=== PATIENT | female | born 1995 ===

== ENCOUNTER 2018-09-04 00:29 | Observation (INO) | payer BC ==
[2018-09-04 00:38] VITALS: BMI 26.6
[2018-09-04 01:12] LABS: HCG,QUALITATIVE URINE NEGATIVE (NEGATIVE)
[2018-09-04 01:13] LABS: SQUAMOUS EPITHIAL 1 /hpf (0-5)
[2018-09-04 01:16] LABS: URINE BILIRUBIN NEGATIVE (NEGATIVE); URINE CLARITY Clear (Clear); URINE COLOR YELLOW (YELLOW); URINE GLUCOSE (UA) NEGATIVE (Normal)
[2018-09-04 01:17] LABS: PH,URINE 7.5 (5.0-8.0); URINE BLOOD MODERATE (NEGATIVE); URINE LEUKOCYTE ESTERASE NEGATIVE Leu/uL (Negative); URINE PROTEIN NEGATIVE (NEGATIVE); URINE UROBILINOGEN 0.2 mg/dL (0.2-1.0)
[2018-09-04] MEDS ORDERED: Iohexol 240 (50 ml) PO ONE (01:49)
[2018-09-04] MEDS ORDERED: Sodium Chloride 0.9% 500 ML IV ONE (01:57)
[2018-09-04] MEDS ORDERED: Iodixanol 320 MG/ML 200 ML BOTTLE IV ONE (01:58)
[2018-09-04] MEDS ORDERED: Iohexol 240 (50 ml) ONE (02:10)
[2018-09-04] MEDS ORDERED: Sodium Chloride 0.9% 1,000 ML ONE (02:11)
[2018-09-04 02:16] LABS: BASO # 0.1 K/uL (0.0-0.2); BASO % 0.4 % (0.0-2.0); EOS # 0.2 K/uL (0.0-0.7); EOS % 1.6 % (0.0-4.0); HEMOGLOBIN 12.6 g/dL (11.0-16.0); LYMPH # 1.3 K/uL (1.0-4.3); LYMPH % 9.1 % (20.0-40.0); MEAN CELL VOLUME 91.7 fL (81.0-99.0); MEAN CORPUSCULAR HEMOGLOBIN 30.6 pg (27.0-31.0); MEAN CORPUSCULAR HGB CONC 33.4 g/dL (33.0-37.0); MEAN PLATELET VOLUME 8.8 fL (7.2-11.7); MONO # 1.2 K/uL (0.0-0.8); MONO % 7.9 % (0.0-10.0); NEUT # 11.8 K/uL (1.8-7.0); PLATELET COUNT 313 K/uL (130-400); RED CELL DISTRIBUTION WIDTH 13.6 % (11.5-14.5); WHITE BLOOD COUNT 14.6 K/uL (4.8-10.8)
[2018-09-04 02:24] LABS: BLOOD UREA NITROGEN 12 mg/dL (7-17); CALCIUM 9.3 mg/dl (8.6-10.4); GFR NON-AFRICAN AMERICAN > 60; LIPASE 22 U/L (23-300)
[2018-09-04 02:56] LABS: ALB/GLOB RATIO 1.5 (1.0-2.1); ALBUMIN 4.5 g/dL (3.5-5.0); ALT/SGPT 9 U/L (9-52); AST/SGOT 39 U/L (14-36)
[2018-09-04 02:58] LABS: EOSINOPHIL 1 % (0-4); LYMPHOCYTE 10 % (20-40); MONOCYTE 9 % (0-10); NEUTROPHIL 80 % (50-75); PLATELET ESTIMATE NORMAL (NORMAL); TOTAL CELLS COUNTED 100
[2018-09-04 03:20] VITALS: RESP 20
--- NOTE | 2018-09-04 04:02 | C.PDOC ---
History Of Present Illness 23 year old female presents to the ED c/o RLQ abdominal pain that started yesterday. Patient states her period just started but has not experienced pain like this before. Patient denies fever, chills, nausea, vomit, diarrhea, dysuria , hematuria, back pain, injury, fall, trauma. Time Seen by Provider: 09/04/18 00:54 Chief Complaint (Nursing): Abdominal Pain History Per: Patient History/Exam Limitations: no limitations Onset/Duration Of Symptoms: Days (1) Current Symptoms Are (Timing): Still Present Location Of Pain/Discomfort: RLQ Quality Of Discomfort: "Pain" Associated Symptoms: denies: Nausea, Vomiting, Diarrhea, Urinary Symptoms Recent travel outside of the [place]: No Additional History Per: Patient Abnormal Vaginal Bleeding: No Last Menstral Period: 09/03/18 Past Medical History Reviewed: Historical Data, Nursing Documentation, Vital Signs Vital Signs: Last Vital Signs Temp 98.2 F 09/04/18 02:40 Pulse 72 09/04/18 02:40 Resp 20 09/04/18 02:40 BP 118/74 09/04/18 02:40 Pulse Ox 99 09/04/18 02:40 - Medical History PMH: No Chronic Diseases Surgical History: No Surg Hx - [facility] Procedures CLOSURE SKIN & SUBCUTANEOUS NEC (03/21/04) SUTURE OF LIP LACERATION (03/21/04) Family History: States: Unknown Family Hx - Social History Hx Alcohol Use: Yes Hx Substance Use: No - Immunization History Hx Tetanus Toxoid Vaccination: No Hx Influenza Vaccination: No Hx Pneumococcal Vaccination: No Review Of Systems Constitutional: Negative for: Fever, Chills Respiratory: Negative for: Cough, Shortness of Breath Gastrointestinal: Positive for: Abdominal Pain. Negative for: Nausea, Vomiting, Diarrhea Genitourinary: Negative for: Dysuria, Hematuria, Vaginal Discharge Musculoskeletal: Negative for: Back Pain Neurological: Negative for: Weakness, Numbness Physical Exam - Physical Exam Appears: Non-toxic, No Acute Distress Skin: Normal Color, Warm, Dry Head: Atraumatic, Normacephalic Eye(s): bilateral: Normal Inspection Oral Mucosa: Moist Neck: Normal ROM, Supple Chest: Symmetrical Cardiovascular: Rhythm Regular Respiratory: Normal Breath Sounds, No Rales, No Rhonchi, No Wheezing Gastrointestinal/Abdominal: Soft, Tenderness (RLQ), No Guarding, No Rebound Back: No CVA Tenderness Pelvic: Vaginal Bleeding (minimal in vault), No Cervical Motion Tenderness, No Cervix Open, No Adnexal Tenderness (or fullness b/l) Extremity: Normal ROM, No Tenderness, No Swelling Neurological/Psych: Oriented x3, Normal Speech, Normal Cognition Gait: Steady ED Course And Treatment - Laboratory Results Result Diagrams: 09/04/18 02:09 09/04/18 02:09 Lab Results: Total Bilirubin 0.9 mg/dL (0.2-1.3) 09/04/18 02:09 AST 39 U/L (14-36) H 09/04/18 02:09 ALT 9 U/L (9-52) 09/04/18 02:09 Alkaline Phosphatase 67 U/L (38-126) 09/04/18 02:09 Total Protein 7.5 g/dL (6.3-8.3) 09/04/18 02:09 Albumin 4.5 g/dL (3.5-5.0) 09/04/18 02:09 Globulin 3.0 gm/dL (2.2-3.9) 09/04/18 02:09 Albumin/Globulin Ratio 1.5 (1.0-2.1) 09/04/18 02:09 Lipase 22 U/L (23-300) L 09/04/18 02:09 Urine Color Yellow (YELLOW) 09/04/18 01:07 Urine Clarity Clear (Clear) 09/04/18 01:07 Urine pH 7.5 (5.0-8.0) 09/04/18 01:07 Ur Specific [place] 1.015 (1.003-1.030) 09/04/18 01:07 Urine Protein Negative mg/dL (NEGATIVE) 09/04/18 01:07 Urine Glucose (UA) Negative mg/dL (Normal) 09/04/18 01:07 Urine Ketones Negative mg/dL (NEGATIVE) 09/04/18 01:07 Urine Blood Moderate (NEGATIVE) 09/04/18 01:07 Urine Nitrate Negative (NEGATIVE) 09/04/18 01:07 Urine Bilirubin Negative (NEGATIVE) 09/04/18 01:07 Urine Urobilinogen 0.2 mg/dL (0.2-1.0) 09/04/18 01:07 Ur Leukocyte Esterase Negative Hortencia/uL (Negative) 09/04/18 01:07 Urine WBC (Auto) 1 /hpf (0-5) 09/04/18 01:07 Urine RBC (Auto) 17 /hpf (0-3) H 09/04/18 01:07 Ur Squamous Epith Cells 1 /hpf (0-5) 09/04/18 01:07 Urine HCG, Qual Negative (NEGATIVE) 09/04/18 01:07 Urine HCG, Qual Negative (NEGATIVE) 09/04/18 01:07 O2 Sat by Pulse Oximetry: 99 (ON RA) Pulse Ox Interpretation: Normal - CT Scan/US Ct abd/pelvis Other Rad Studies (CT/US): Read By Radiologist, Radiology Report Reviewed CT/US Interpretation: CT SCAN OF THE ABDOMEN AND PELVIS WITH CONTRAST. CLINICAL HISTORY: Right lower quadrant pain. TECHNIQUE: Multiple axial and coronal CT images were obtained through the abdomen and pelvis after administration of intravenous and oral contrast material. COMMENTS: The appendix is enlarged measuring 1.5 cm in its largest transverse dimension. Diffuse thickening and enhancement of the wall of the appendix with prominent surrounding inflammatory fat stranding. The liver is of uniform attenuation without mass or defect. There is no intra or extrahepatic biliary ductal dilatation. The spleen is normal. The gallbladder is within normal limits. The pancreas is of normal contour and attenuation characteristics. There is no evidence of adrenal mass. Both kidneys demonstrate prompt and equal nephrograms. The kidneys are normal in size, shape and configuration. There is no evidence of renal or ureteral mass. No renal or ureteral calculi are identified. There is no hydroureter or hydronephrosis. There is no bowel wall thickening. No evidence for small or large bowel obstruction. There is no evidence of abdominal ascites or lymphadenopathy. There is no evidence of intrinsic or extrinsic bladder mass. There is no pelvic ascites or lymphadenopathy. Images of the lung bases show no evidence of pleural or parenchymal mass. There are no pleural effusions. The bony structures are free of lytic or blastic lesions. IMPRESSION: Uncomplicated acute appendicitis without perforation or abscess formation. Thank you for your kind referral of this patient. . Electronically signed on Sep 04, 2018 4:35:45 AM EST by: Yamel Potter M.D., Certified by ABR, MSK, Neuroradiology. Progress Note: Plan: - CT abd/pelvis. - Labs. - Morphine 2 mg IVP. - IV fluids. - UA. 04:50 - spoke with residential mortgage underwriter who will evaluate the patient for admission under Dr. Holcomb service. 05:27 - pages Lilo Hanna using his service. 05:55 - second call for Lilo Hanna was placed using his call service again. Labs and Abd/ pelvis CT d/w pt who who und erstand and agreed to plan . Zosyn IV initiated in ED. Disposition - Disposition Disposition: HOSPITALIZED Disposition Time: 05:25 Condition: STABLE - Clinical Impression Clinical Impression: Acute appendicitis - PA / BINDERY ASSISTANT / Resident Statement MD/DO has reviewed & agrees with the documentation as recorded. - Scribe Statement The provider has reviewed the documentation as recorded by the Scribe Wiliam Hurtado All medical record entries made by the Scribe were at my direction and pe rsonally dictated by me. I have reviewed the chart and agree that the record accurately reflects my personal performance of the history, physical exam, medical decision making, and the department course for this patient. I have also personally directed, reviewed, and agree with the discharge instructions and disposition.
[2018-09-04] MEDS ORDERED: Piperacillin/Tazobact 3.375 gm 100 ML IV STA (04:44)
[2018-09-04] MEDS ORDERED: Piperacillin/Tazobact 3.375 gm 100 ML IVPB ONE (04:53)
[2018-09-04] MEDS: Lactated Ringer's 1,000 ML IV SCH ×2 (06:45→16:00)
[2018-09-04] MEDS: Piperacill/Tazo 3.375gm in Dex 3.375 GM/50 ML BAG IVPB SCH ×3 (06:54→17:41)
--- NOTE | 2018-09-04 07:35 | CP.PCM.HP ---
<Regina Larson - Last Filed: 09/04/18 07:29> History of Present Illness - History of Present Illness History of Present Illness: Surgery: Dr. Holcomb Pt is a 23F with no significant PMHx who presented to with complaints of abdominal pain. Pt states her pain started yesterday afternoon and was generalized over her entire abdomen, however as the day progressed her pain became severe with localization to the RLQ. She states she has never had similar episodes in the past, and the pain is different from her monthly cramps. She denies associated nausea/vomiting, fevers or chills. Denies chest pain or SOB. In the ER, pt had a CT abdomen/pelvis which shows dilated appendix with fat stranding and small appendicolith. Surgery called to evaluate. Currently, pt is resting comfortably, states pain is controlled with morphine. Pt states she's currently on her period. Denies other complaints. PMHx: denies PSHx: denies SocialHx: occasional cigarettes, denies EtOH/drugs NKDA Present on Admission - Present on Admission Any Indicators Present on Admission: No Review of Systems - Review of Systems All systems: reviewed and no additional remarkable complaints except (as per HPI) Past Patient History - Past Social History Smoking Status: Light Smoker < 10 Cigarettes Daily - PSYCHIATRIC Hx Substance Use: No - SURGICAL HISTORY Hx Surgeries: No - ANESTHESIA Hx Anesthesia: No Meds Allergies/Adverse Reactions: Allergies Allergy/AdvReac Type Severity Reaction Status Date / Time No Known Allergies Allergy Verified 09/04/18 00:37 Physical Exam - Constitutional Appears: Well, No Acute Distress - Head Exam Head Exam: ATRAUMATIC, NORMOCEPHALIC - Eye Exam Eye Exam: Normal appearance - ENT Exam ENT Exam: Mucous Membranes Moist - Respiratory Exam Respiratory Exam: NORMAL BREATHING PATTERN - Cardiovascular Exam Cardiovascular Exam: RRR - GI/Abdominal Exam GI & Abdominal Exam: Soft, Tenderness (RLQ). absent: Distended, Guarding, Rebound - Neurological Exam Neurological exam: Alert, Oriented x3 - Skin Skin Exam: Dry, Warm Results - Vital Signs Recent Vital Signs: Last Vital Signs Temp 98.2 F 09/04/18 04:35 Pulse 74 09/04/18 04:35 Resp 20 09/04/18 04:35 BP 102/55 L 09/04/18 04:35 Pulse Ox 99 09/04/18 06:16 - Labs Result Diagrams: 09/04/18 02:09 09/04/18 02:09 Labs: Laboratory Results - last 24 hr 09/04/18 09/04/18 09/04/18 01:07 02:09 02:09 WBC 14.6 H RBC 4.10 Hgb 12.6 Hct 37.6 MCV 91.7 MCH 30.6 MCHC 33.4 RDW 13.6 Plt Count 313 MPV 8.8 Neut % (Auto) 81.0 H Lymph % (Auto) 9.1 L Roosevelt % (Auto) 7.9 Eos % (Auto) 1.6 Baso % (Auto) 0.4 Neut # (Auto) 11.8 H Lymph # (Auto) 1.3 Roosevelt # (Auto) 1.2 H Eos # (Auto) 0.2 Baso # (Auto) 0.1 Neutrophils % (Manual) 80 H Lymphocytes % (Manual) 10 L Monocytes % (Manual) 9 Eosinophils % (Manual) 1 Platelet Estimate Normal Sodium 135 Potassium 4.9 Chloride 103 Carbon Dioxide 28 Anion Gap 10 BUN 12 Creatinine 0.5 L Est GFR ( Amer) > 60 Est GFR (Non-Af Amer) > 60 Random Glucose 102 Calcium 9.3 Total Bilirubin 0.9 AST 39 H ALT 9 Alkaline Phosphatase 67 Total Protein 7.5 Albumin 4.5 Globulin 3.0 Albumin/Globulin Ratio 1.5 Lipase 22 L Urine Color Yellow Urine Clarity Clear Urine pH 7.5 Ur Specific [place] 1.015 Urine Protein Negative Urine Glucose (UA) Negative Urine Ketones Negative Urine Blood Moderate Urine Nitrate Negative Urine Bilirubin Negative Urine Urobilinogen 0.2 Ur Leukocyte Esterase Negative Urine WBC (Auto) 1 Urine RBC (Auto) 17 H Ur Squamous Epith Cells 1 Urine HCG, Qual Negative - Imaging and Cardiology CT scan - abdomen Status: Image reviewed by me, Report reviewed by me Assessment & Plan - Assessment and Plan (Free Text) Assessment: 23F with acute appendicitis Plan: - OR for lap appendectomy - NPO, IVF - IV ABX - d/w Dr. Aicha Larson <Juan Holcomb - Last Filed: 09/04/18 16:39> Results - Vital Signs Recent Vital Signs: Last Vital Signs Temp 99 F 09/04/18 07:20 Pulse 99 H 02/12/19 10:52 Resp 20 09/04/18 07:20 BP 123/78 09/04/18 10:52 Pulse Ox 98 09/04/18 07:20 - Labs Result Diagrams: 09/04/18 02:09 09/04/18 02:09 Labs: Laboratory Results - last 24 hr 09/04/18 09/04/18 09/04/18 01:07 02:09 02:09 WBC 14.6 H RBC 4.10 Hgb 12.6 Hct 37.6 MCV 91.7 MCH 30.6 MCHC 33.4 RDW 13.6 Plt Count 313 MPV 8.8 Neut % (Auto) 81.0 H Lymph % (Auto) 9.1 L Roosevelt % (Auto) 7.9 Eos % (Auto) 1.6 Baso % (Auto) 0.4 Neut # (Auto) 11.8 H Lymph # (Auto) 1.3 Roosevelt # (Auto) 1.2 H Eos # (Auto) 0.2 Baso # (Auto) 0.1 Neutrophils % (Manual) 80 H Lymphocytes % (Manual) 10 L Monocytes % (Manual) 9 Eosinophils % (Manual) 1 Platelet Estimate Normal PT INR APTT Sodium 135 Potassium 4.9 Chloride 103 Carbon Dioxide 28 Anion Gap 10 BUN 12 Creatinine 0.5 L Est GFR ( Amer) > 60 Est GFR (Non-Af Amer) > 60 Random Glucose 102 Calcium 9.3 Total Bilirubin 0.9 AST 39 H ALT 9 Alkaline Phosphatase 67 Total Protein 7.5 Albumin 4.5 Globulin 3.0 Albumin/Globulin Ratio 1.5 Lipase 22 L Urine Color Yellow Urine Clarity Clear Urine pH 7.5 Ur Specific [place] 1.015 Urine Protein Negative Urine Glucose (UA) Negative Urine Ketones Negative Urine Blood Moderate Urine Nitrate Negative Urine Bilirubin Negative Urine Urobilinogen 0.2 Ur Leukocyte Esterase Negative Urine WBC (Auto) 1 Urine RBC (Auto) 17 H Ur Squamous Epith Cells 1 Urine HCG, Qual Negative 09/04/18 09:54 WBC RBC Hgb Hct MCV MCH MCHC RDW Plt Count MPV Neut % (Auto) Lymph % (Auto) Roosevelt % (Auto) Eos % (Auto) Baso % (Auto) Neut # (Auto) Lymph # (Auto) Roosevelt # (Auto) Eos # (Auto) Baso # (Auto) Neutrophils % (Manual) Lymphocytes % (Manual) Monocytes % (Manual) Eosinophils % (Manual) Platelet Estimate PT 11.5 INR 1.1 APTT 31 Sodium Potassium Chloride Carbon Dioxide Anion Gap BUN Creatinine Est GFR ( Amer) Est GFR (Non-Af Amer) Random Glucose Calcium Total Bilirubin AST ALT Alkaline Phosphatase Total Protein Albumin Globulin Albumin/Globulin Ratio Lipase Urine Color Urine Clarity Urine pH Ur Specific Talmo Urine Protein Urine Glucose (UA) Urine Ketones Urine Blood Urine Nitrate Urine Bilirubin Urine Urobilinogen Ur Leukocyte Esterase Urine WBC (Auto) Urine RBC (Auto) Ur Squamous Epith Cells Urine HCG, Qual Attending/Attestation - Attestation I have personally seen and examined this patient.: Yes I have fully participated in the care of the patient.: Yes I have reviewed all pertinent clinical information: Yes Notes (Text): Pt was seen and examined at bedside Agree with above note and assessment Pt with RLQ pain and nausea Abdomen: Soft, RLQ tenderness, No distended Labs and Radiology reviewed Ass: Acute Appendicitis and Leucocytosis Plan: OR for Lap Appendectomy possible OR Consent NPO, IVF IV antibiotics Plan d.w pt in detail. Risk and benefit explained in detail.
--- NOTE | 2018-09-04 08:39 | CT ---
CT abdomen and pelvis HISTORY: Right lower quadrant abdominal pain. COMPARISON: None available. TECHNIQUE: Multiple contiguous axial images were performed through the abdomen and pelvis with the use of intravenous contrast. Subsequently, sagittal and coronal reformatted images were obtained. This CT exam was performed using one or more of the following dose reduction techniques: Automated exposure control, adjustment of the mA and/or kV according to patient size, and/or use of iterative reconstruction technique. Findings: Atelectasis at the lung bases. No pleural or pericardial effusion. 1.1 centimeter rounded enhancing focus seen within the right hepatic lobe on series 3, image 14. This is of uncertain clinical etiology and correlation with a multiphasic contrast enhanced CT or MR through the liver may be helpful for further characterization of this focus/lesion. Gallbladder is preserved. Spleen is preserved. Adrenal glands are preserved. Pancreas is preserved. Upper abdominal bowel is preserved. Right kidney: No calculi or hydronephrosis. Left Kidney: No calculi or hydronephrosis. Urinary bladder is preserved. Heterogeneous uterus and bilateral adnexa. Fecal retention in the right hemicolon. Appendix is visualized and thickened measuring up to 1.3 centimeters. Associated adjacent periappendiceal fat stranding and fluid. These findings are suggestive for acute appendicitis. Punctate 1-2 millimeter appendicolith at the base of the appendix. A punctate foci of air seen at the level of the appendix on series 3, image 119 appears to be contiguous with the lumen and approximates the wall. Clinical correlation. Fecalization of distal small bowel. Underdistended sigmoid colon and rectum Few shotty para-aortic and inguinal lymph nodes. Impression: 1. Findings concerning for acute appendicitis. 2. 1.1 centimeter rounded enhancing focus seen within the right hepatic lobe on series 3, image 14. This is of uncertain clinical etiology and correlation with a multiphasic contrast enhanced CT or MR through the liver may be helpful for further characterization of this focus/lesion. Additional findings as above. A preliminary report was generated at 4:35 a.m. on 09/04/[address] Yamel Potter from [employer]. This case was placed in the PA review folder.
[2018-09-04 10:05] LABS: INR 1.1; PROTHROMBIN TIME 11.5 SECONDS (9.7-12.2)
[2018-09-04] MEDS ORDERED: Bupivacaine 0.25% 20 ML INJ IJ ONE (14:43)
[2018-09-04] MEDS ORDERED: Lidocaine/Epinephrine 1% 1:100000 10 ML IJ ONE (14:44)
[2018-09-04] MEDS ORDERED: Succinylcholine Chloride 20 mg/ml Syr (5 ml) IV ONE (14:53)
[2018-09-04] MEDS ORDERED: Rocuronium 10 mg/ml (5 ml) ONE (14:53)
[2018-09-04] MEDS ORDERED: Propofol 10 mg/ml Inj (20 ML) ONE (14:54)
[2018-09-04] MEDS ORDERED: Midazolam 2 MG/2 ML VIAL ONE (14:54)
[2018-09-04] MEDS ORDERED: Neostigmine 1:1000 (1 mg/ml) Inj ONE (16:05)
--- NOTE | 2018-09-04 16:27 | PCM.SURG1 ---
Surgeon's Initial Post Op Note - Surgeon's Notes Surgeon: MD Aicha Radio Frequency Design Engineer: Klever PGY3. MS Parish3 Pre-Operative Diagnosis: Acute Appendicitis Operative Findings: inflammed appendix, fluid in pelvis Post-Operative Diagnosis: Acute Appendicitis Operation Performed: Laparoscopic Appendectomy Specimen/Specimens Removed: appendix Estimated Blood Loss: EBL {In ML}: 5 Date of Surgery/Procedure: 09/04/18 Time of Surgery/Procedure: 16:26
[2018-09-04] MEDS: HYDROmorphone 0.5 mg/0.5 ml ISec IVP PRN ×2 (16:28→16:53)
[2018-09-04] MEDS ORDERED: HYDROmorphone 0.5 mg/0.5 ml ISec ONE (16:31)
[2018-09-05] MEDS ORDERED: Oxycodone/Acetaminophen 5/325 mg Tab PO STA (00:22)
[2018-09-05] MEDS: Piperacill/Tazo 3.375gm in Dex 3.375 GM/50 ML BAG IVPB SCH ×3 (00:30→11:28)
--- NOTE | 2018-09-05 01:16 | OP ---
PROCEDURE DATE: 09/04/2018 PREOPERATIVE DIAGNOSES: 1. Acute appendicitis. 2. Leukocytosis. POSTOPERATIVE DIAGNOSES: 1. Acute suppurative appendicitis with phlegmonous changes. 2. Pelvic collection, purulent. PROCEDURES: 1. Laparoscopic appendectomy. 2. Laparoscopic drainage of pelvic purulent collection. SURGEON: Juan Holcomb MD [employer] DEF[employer] ARTILLERY CREWMEMBER: Mitch Ernst DO, PGY-3, Resident. ANESTHESIA: General endotracheal tube anesthesia. ESTIMATED BLOOD LOSS: Around 10 mL. DRAINS: None. PATHOLOGY: Appendix was sent to the pathology. COMPLICATIONS: None. INTRAOPERATIVE FINDINGS: The patient had acute suppurative appendicitis with omental adhesion as well as pelvic collection. DESCRIPTION OF PROCEDURE: On intraoperative steps, this is a 23-year-old female who was diagnosed with acute appendicitis, and the patient was consented for laparoscopic appendectomy possible open, brought to the OR, placed supine on operating table. After induction of the anesthesia, the abdomen was prepped and draped in the usual sterile fashion. The supraumbilical transverse incision was made using open technique. Peritoneal cavity was entered. Pneumo was created. Another two 5-mm and 12-mm ports were placed in the left lower quadrant as well as suprapubic region. Grasper and dissector were introduced, and the phlegmon of the appendix was mobilized. Appendix was identified. The base of the appendix was identified. The mesoappendix was resected with harmonic scalpel. The appendix was mobilized from the lateral abdominal wall, and the base of the appendix was resected with a SUZETTE, and appendix was taken in EndoCatch bag, taken out through the umbilical port site, and sent off the table for the pathology. There was a proper hemostasis in each and every part of the procedure. The patient also had semi-purulent pelvic collection that was drained. Suction irrigation of the pelvis was done thoroughly to drain all the pelvic collection, and after that, the perihepatic area and periappendicular were also irrigated and fluid was suction out, and after that, appendix was sent off the table for the pathology. All the ports were taken out under vision. Pneumo was deflated. The umbilical port site was closed in two layers, the fascia with 0 Vicryl interrupted sutures, skin with 4-0 Monocryl, and dry sterile dressing was applied. The patient tolerated the procedure well. Count of instrument and gauze was correct. There was no apparent complication. The patient was extubated in OR and sent to the postanesthesia care unit in stable condition. Juan Holcomb MD MTDTrevor
[2018-09-05 07:46] VITALS: BP 115/80; PULSE 101; TEMP 99.4; O2SAT 96
[2018-09-05 08:08] LABS: BASO % 0.2 % (0.0-2.0); EOS # 0.1 K/uL (0.0-0.7); EOS % 0.7 % (0.0-4.0); HEMOGLOBIN 11.9 g/dL (11.0-16.0); LYMPH # 1.3 K/uL (1.0-4.3); LYMPH % 14.3 % (20.0-40.0); MEAN CELL VOLUME 91.8 fL (81.0-99.0); MEAN CORPUSCULAR HEMOGLOBIN 30.2 pg (27.0-31.0); MEAN CORPUSCULAR HGB CONC 32.9 g/dL (33.0-37.0); MEAN PLATELET VOLUME 7.8 fL (7.2-11.7); MONO # 0.7 K/uL (0.0-0.8); MONO % 7.4 % (0.0-10.0); NEUT # 7.2 K/uL (1.8-7.0); NEUT % 77.4 % (50.0-75.0); NRBC % 0.1 % (0.0-2.0); RBC 3.94 Mil/uL (3.80-5.20); RED CELL DISTRIBUTION WIDTH 13.4 % (11.5-14.5); WHITE BLOOD COUNT 9.3 K/uL (4.8-10.8)
[2018-09-05] MEDS: Lactated Ringer's 1,000 ML IV SCH (10:15)
[2018-09-05] MEDS ORDERED: Oxycodone/Acetaminophen 5/325 mg Tab PO PRN (11:42)
[2018-09-05] MEDS ORDERED: Lactated Ringer's 1,000 ML IV SCH (11:42)
--- NOTE | 2018-09-05 14:14 | CP.PCM.DIS ---
Provider - Provider Date of Admission: 09/04/18 04:57 Attending physician: Juan Holcomb MD Time Spent in preparation of Discharge (in minutes): 40 Hospital Course - Lab Results Lab Results: Most Recent Lab Values WBC 9.3 K/uL (4.8-10.8) 09/05/18 07:27 RBC 3.94 Mil/uL (3.80-5.20) 09/05/18 07:27 Hgb 11.9 g/dL (11.0-16.0) 09/05/18 07:27 Hct 36.2 % (34.0-47.0) 09/05/18 07:27 MCV 91.8 fL (81.0-99.0) 09/05/18 07:27 MCH 30.2 pg (27.0-31.0) 09/05/18 07:27 MCHC 32.9 g/dL (33.0-37.0) L 09/05/18 07:27 RDW 13.4 % (11.5-14.5) 09/05/18 07:27 Plt Count 270 K/uL (130-400) 09/05/18 07:27 MPV 7.8 fL (7.2-11.7) 09/05/18 07:27 Neut % (Auto) 77.4 % (50.0-75.0) H 09/05/18 07:27 Lymph % (Auto) 14.3 % (20.0-40.0) L 09/05/18 07:27 Coles % (Auto) 7.4 % (0.0-10.0) 09/05/18 07:27 Eos % (Auto) 0.7 % (0.0-4.0) 09/05/18 07:27 Baso % (Auto) 0.2 % (0.0-2.0) 09/05/18 07:27 Neut # (Auto) 7.2 K/uL (1.8-7.0) H 09/05/18 07:27 Lymph # (Auto) 1.3 K/uL (1.0-4.3) 09/05/18 07:27 Coles # (Auto) 0.7 K/uL (0.0-0.8) 09/05/18 07:27 Eos # (Auto) 0.1 K/uL (0.0-0.7) 09/05/18 07:27 Baso # (Auto) 0.0 K/uL (0.0-0.2) 09/05/18 07:27 Neutrophils % (Manual) 80 % (50-75) H 09/04/18 02:09 Lymphocytes % (Manual) 10 % (20-40) L 09/04/18 02:09 Monocytes % (Manual) 9 % (0-10) 09/04/18 02:09 Eosinophils % (Manual) 1 % (0-4) 09/04/18 02:09 Platelet Estimate Normal (NORMAL) 09/04/18 02:09 PT 11.5 SECONDS (9.7-12.2) 09/04/18 09:54 INR 1.1 09/04/18 09:54 APTT 31 SECONDS (21-34) 09/04/18 09:54 Sodium 135 mmol/L (132-148) 09/04/18 02:09 Potassium 4.9 mmol/L (3.6-5.2) 09/04/18 02:09 Chloride 103 mmol/L (98-107) 09/04/18 02:09 Carbon Dioxide 28 mmol/L (22-30) 09/04/18 02:09 Anion Gap 10 (10-20) 09/04/18 02:09 BUN 12 mg/dL (7-17) 09/04/18 02:09 Creatinine 0.5 mg/dL (0.7-1.2) L 09/04/18 02:09 Est GFR ( Amer) > 60 09/04/18 02:09 Est GFR (Non-Af Amer) > 60 09/04/18 02:09 Random Glucose 102 mg/dL (65-105) 09/04/18 02:09 Calcium 9.3 mg/dl (8.6-10.4) 09/04/18 02:09 Total Bilirubin 0.9 mg/dL (0.2-1.3) 09/04/18 02:09 AST 39 U/L (14-36) H 09/04/18 02:09 ALT 9 U/L (9-52) 09/04/18 02:09 Alkaline Phosphatase 67 U/L (38-126) 09/04/18 02:09 Total Protein 7.5 g/dL (6.3-8.3) 09/04/18 02:09 Albumin 4.5 g/dL (3.5-5.0) 09/04/18 02:09 Globulin 3.0 gm/dL (2.2-3.9) 09/04/18 02:09 Albumin/Globulin Ratio 1.5 (1.0-2.1) 09/04/18 02:09 Lipase 22 U/L (23-300) L 09/04/18 02:09 Urine Color Yellow (YELLOW) 09/04/18 01:07 Urine Clarity Clear (Clear) 09/04/18 01:07 Urine pH 7.5 (5.0-8.0) 09/04/18 01:07 Ur Specific [place] 1.015 (1.003-1.030) 09/04/18 01:07 Urine Protein Negative mg/dL (NEGATIVE) 09/04/18 01:07 Urine Glucose (UA) Negative mg/dL (Normal) 09/04/18 01:07 Urine Ketones Negative mg/dL (NEGATIVE) 09/04/18 01:07 Urine Blood Moderate (NEGATIVE) 09/04/18 01:07 Urine Nitrate Negative (NEGATIVE) 09/04/18 01:07 Urine Bilirubin Negative (NEGATIVE) 09/04/18 01:07 Urine Urobilinogen 0.2 mg/dL (0.2-1.0) 09/04/18 01:07 Ur Leukocyte Esterase Negative Hortencia/uL (Negative) 09/04/18 01:07 Urine WBC (Auto) 1 /hpf (0-5) 09/04/18 01:07 Urine RBC (Auto) 17 /hpf (0-3) H 09/04/18 01:07 Ur Squamous Epith Cells 1 /hpf (0-5) 09/04/18 01:07 Urine HCG, Qual Negative (NEGATIVE) 09/04/18 01:07 - Hospital Course Hospital Course: 23F was admitted to hospital for appendicitis. Went to OR same day for lap appendectomy. Post op doing well, tolerating diet, ready to go home. Discharge Exam - Head Exam Head Exam: ATRAUMATIC, NORMOCEPHALIC - Respiratory Exam Respiratory Exam: Clear to PA & Lateral, NORMAL BREATHING PATTERN - Cardiovascular Exam Cardiovascular Exam: REGULAR RHYTHM, +S1, +S2 - GI/Abdominal Exam GI & Abdominal Exam: Soft. absent: Distended, Firm, Guarding, Mass, Rebound, Rigid, Tenderness Additional comments: dressing CDI - Neurological Exam Neurological exam: Alert - Skin Skin Exam: Dry, Intact, Normal Color, Warm Discharge Plan - Follow Up Plan Condition: STABLE Disposition: HOME/ ROUTINE Patient education suggested?: Yes Instructions: Appendectomy, Laparoscopic Surgery (DC) Additional Instructions: 1) Off work until follow up 2) Please follow up in office in 1-2 weeks 3) May shower but do not bath 4) May remove dressing in 4 days 5) Steri-strips will fall off on their own 6) Take medications as prescribed Referrals: Juan Holcomb MD [Staff Provider] -
== END 2018-09-05 16:05 | disposition home or self-care (01) ==
LOC: C.ER 00:29 → C.6T 04:57
PROVIDERS: ADMIT Surgery Surgical Critical Care; ATTEND Surgery Surgical Critical Care
DX: K35.80 Unspecified acute appendicitis (principal); F17.210 Nicotine dependence, cigarettes, uncomplicated; K66.0 Peritoneal adhesions (postprocedural) (postinfection)
CPT/HCPCS: 36415; 44970; 74177; 80053; 81001; 83690; 84703; 85025; 85610; 85730; 88304; 96361; 96365; 96366; 96375; 96376; 99285; G0378; J1170; J2001; J2250; J2270; J2405; J2543; J2704; J2710; J3010; J7040; J7120; Q9966

== ENCOUNTER 2018-09-06 00:23 | Emergency (ER) | payer BC ==
[2018-09-06 00:23] VITALS: BMI 26.6
[2018-09-06 00:28] VITALS: RESP 20; O2SAT 98
--- NOTE | 2018-09-06 01:05 | C.PDOC ---
History Of Present Illness 23 year old female presents s/p appendectomy presents to the ER complaining of no bowel movement for the past few days after surgery. Patient reports having pain due to no bowel movement. Denies fever or chills. Chief Complaint (Nursing): GI Problem History Per: Patient History/Exam Limitations: no limitations Onset/Duration Of Symptoms: Days Current Symptoms Are (Timing): Still Present Location Of Pain/Discomfort: Diffuse Radiation Of Pain To:: None Quality Of Discomfort: Unable To Describe Associated Symptoms: Constipation Exacerbating Factors: None Alleviating Factors: None Recent travel outside of the [place]: No Abnormal Vaginal Bleeding: No Past Medical History Reviewed: Historical Data, Nursing Documentation, Vital Signs Vital Signs: Last Vital Signs Temp 97.9 F 09/06/18 00:24 Pulse 93 H 09/06/18 00:24 Resp 20 09/06/18 00:24 BP 122/83 09/06/18 00:24 Pulse Ox 98 09/06/18 00:24 Surgical History: Appendectomy - [facility] Procedures CLOSURE SKIN & SUBCUTANEOUS NEC (03/21/04) SUTURE OF LIP LACERATION (03/21/04) Family History: States: Unknown Family Hx - Social History Hx Alcohol Use: Yes Hx Substance Use: No - Immunization History Hx Tetanus Toxoid Vaccination: No Hx Influenza Vaccination: No Hx Pneumococcal Vaccination: No Review Of Systems Constitutional: Negative for: Fever, Chills Cardiovascular: Negative for: Chest Pain, Palpitations Respiratory: Negative for: Cough, Shortness of Breath Gastrointestinal: Positive for: Abdominal Pain, Constipation. Negative for: Nausea, Vomiting Neurological: Negative for: Weakness, Numbness Physical Exam - Physical Exam Appears: Non-toxic, Other (Mild distress) Skin: Normal Color, Warm, Dry Head: Atraumatic, Normacephalic Eye(s): bilateral: Normal Inspection Oral Mucosa: Moist Neck: Normal, Supple Chest: Symmetrical, No Tenderness Cardiovascular: Rhythm Regular Respiratory: Normal Breath Sounds, No Rales, No Rhonchi, No Wheezing Gastrointestinal/Abdominal: Soft, Tenderness (Diffuse nonspecific), No Guarding, No Rebound Back: No CVA Tenderness Neurological/Psych: Oriented x3, Normal Speech ED Course And Treatment O2 Sat by Pulse Oximetry: 98 (Room air) Pulse Ox Interpretation: Normal Progress Note: Toradol and fleet enema administered. Disposition Counseled Patient/Family Regarding: Diagnosis - Disposition Referrals: [facility] [Outside] Disposition: HOME/ ROUTINE Disposition Time: 02:18 Condition: STABLE Instructions: Constipation, Adult (DC), High Fiber Diet Forms: [facility] (Armenian) - POA Present On Arrival: None - Clinical Impression Clinical Impression: Constipation by delayed colonic transit - Scribe Statement The provider has reviewed the documentation as recorded by the Scribe Chavez Hawley All medical record entries made by the Scribe were at my direction and personally dictated by me. I have reviewed the chart and agree that the record accurately reflects my personal performance of the history, physical exam, medical decision making, and the department course for this patient. I have also personally directed, reviewed, and agree with the discharge instructions and disposition.
[2018-09-06 02:27] VITALS: BP 97/62; PULSE 70; TEMP 98.4
== END 2018-09-06 02:27 | disposition home or self-care (01) ==
LOC: C.ER 00:23
DX: K59.01 Slow transit constipation (principal)
CPT/HCPCS: 96372; 99284; J1885